=== PATIENT | female | born 1975 | race Caucasian/White ===

== ENCOUNTER 2017-04-09 06:49 | Emergency (ER) | payer OTHER ==
[2017-04-09 07:37] LABS: BASOPHIL 0.1 % (0-2); EOSINOPHIL 0.9 % (0-5); HCT 34.7 % (37.0-47.0); HGB 11.6 g/dl (12.5-16.0); LYMPHOCYTE 15.4 % (15-48); MCH 33.2 pg (25.0-31.0); MCHC 33.4 g/dL (32.0-36.0); MCV 99.4 fL (78.0-100.0); MONOCYTE 4.4 % (0-12); MPV 9.4 fL (6.0-9.5); NEUTROPHIL 79.2 % (41-80); PLT 274 K/uL (150-400); RBC 3.49 M/uL (4.20-5.40); RDW 12.2 % (11.5-14.0); WBC 10.4 K/uL (4.0-10.5)
[2017-04-09 07:55] LABS: ALBUMIN 4.1 g/dL (3.5-5.0); BILIRUBIN - TOTAL 0.3 mg/dL (0.1-1.0); CREATININE 1.7 mg/dL (0.5-1.0); GLOBULIN (CALCULATION) 2.8 g/dL (2.2-4.2); POTASSIUM 3.5 mmol/L (3.5-5.1); TOTAL PROTEIN 6.9 g/dL (6.4-8.3)
[2017-04-09 08:08] LABS: LACTIC ACID 1.3 mmol/L (0.5-2.2)
[2017-04-09 08:13] LABS: BILIRUBIN NEGATIVE (NEGATIVE); BLOOD 1+ Ery/uL (NEGATIVE); CLARITY CLEAR (CLEAR); COLOR YELLOW (YELLOW); GLUCOSE (U) NORMAL (NORMAL); KETONE (U) NEGATIVE (NEGATIVE); LEUKOCYTES TRACE Leu/uL (NEGATIVE); NITRITE NEGATIVE (NEGATIVE); PROTEIN NEGATIVE (NEGATIVE); SPECIFIC GRAVITY 1.015 (1.001-1.030); UROBILINOGEN 0.2 mg/dL (0.2-1.0); pH 5.5 (5.0-9.0)
[2017-04-09 08:24] LABS: BACTERIA 1+
== END 2017-04-09 09:21 | disposition home or self-care (01) ==
LOC: FER 06:49
PROVIDERS: Emergency Medicine
DX: K59.00 Constipation, unspecified (principal); Q61.3 Polycystic kidney, unspecified; I12.9 Hypertensive chronic kidney disease with stage 1 through stage 4 chronic kidney disease, or unspecified chronic kidney disease; N18.4 Chronic kidney disease, stage 4 (severe); Z98.51 Tubal ligation status; F17.200 Nicotine dependence, unspecified, uncomplicated; Z88.1 Allergy status to other antibiotic agents; Z88.6 Allergy status to analgesic agent; Z79.899 Other long term (current) drug therapy
CPT/HCPCS: 36415; 80053; 81001; 83605; 83690; 85025; 87040; 87088; J2270; J2405

== ENCOUNTER 2021-08-04 12:53 | Emergency (ER) | payer MEDICARE, OTHER ==
[~2021-08-04 12:53] MED LIST: AMITRIPTYLINE H10 MG PO; AMLODIPINE BESY10 MG PO; BENTYL10 MG PO; CIPRO500 MG PO; HYDROCODON-ACE1 EAC2 PO; LOPRESSOR25 MG PO; OMEPRAZOLE40 MG PO; PROMETHAZINE12.5 M1 PO; SODIUM BICARBO650 MG PO
[2021-08-04 14:05] LABS: BASOPHIL 0.2 % (0-2); EOSINOPHIL 0.3 % (0-5); HCT 35.1 % (37.0-47.0); HGB 11.9 g/dl (12.5-16.0); MCH 31.1 pg (25.0-31.0); MCHC 33.9 g/dL (32.0-36.0); MCV 91.6 fL (78.0-100.0); MONOCYTE 4.4 % (0-12); MPV 10.6 fL (6.0-9.5); NEUTROPHIL 88.8 % (41-80); NRBC 0; PLT 241 K/uL (150-400); RBC 3.83 M/uL (4.20-5.40); RDW 11.7 % (11.5-14.0); WBC 10.8 K/uL (4.0-10.5)
[2021-08-04 15:06] LABS: ALBUMIN 4.4 g/dL (3.4-5.0); ALKALINE PHOSHATASE 62 U/L (46-116); ALT 26 U/L (14-59); AST 17 U/L (15-37); BILIRUBIN - TOTAL 0.5 mg/dL (0.2-1.0); BUN 13 mg/dL (7-18); BUN/CREAT RATIO (CALC) 15.9 RATIO; C-REACTIVE PROTEIN < 0.20 mg/dL (<=0.90); CHLORIDE 103 mmol/L (98-107); CO2 (BICARBONATE) 22 mmol/L (21-32); CREATININE 0.82 mg/dL (0.51-0.95); GLOBULIN (CALCULATION) 3.1 g/dL; GLUCOSE 173 mg/dL (74-106); MAGNESIUM 1.6 mg/dL (1.8-2.4); POTASSIUM 3.6 mmol/L (3.5-5.1); TOTAL PROTEIN 7.5 g/dL (6.4-8.2)
[2021-08-04 15:29] LABS: BILIRUBIN NEGATIVE (NEGATIVE); BLOOD NEGATIVE Ery/uL (NEGATIVE); CLARITY CLEAR (CLEAR); COLOR YELLOW (YELLOW); GLUCOSE (U) NORMAL (NORMAL); LEUKOCYTES NEGATIVE Leu/uL (NEGATIVE); NITRITE NEGATIVE (NEGATIVE); PROTEIN 1+ mg/dL (NEGATIVE); UROBILINOGEN 0.2 mg/dL (0.2-1.0)
[2021-08-04 15:43] LABS: LACTIC ACID 1.2 mmol/L (0.4-1.9)
[2021-08-04 15:45] LABS: URINARY RBC RARE; URINARY WBC RARE
== END 2021-08-04 21:01 | disposition other institution (70) ==
LOC: FER 12:53
PROVIDERS: Emergency Medicine
DX: R10.9 Unspecified abdominal pain (principal); R11.10 Vomiting, unspecified; R19.7 Diarrhea, unspecified; Z20.822 Contact with and (suspected) exposure to COVID-19; Z88.6 Allergy status to analgesic agent; Z88.8 Allergy status to other drugs, medicaments and biological substances
CPT/HCPCS: 36415; 71045; 80053; 81001; 83605; 83735; 84145; 84484; 85025; 86140; 87040; 93005; J1170; J2405; J2550; J7030; U0002

== ENCOUNTER 2022-02-01 04:22 | Emergency (ER) | payer MEDICARE, OTHER ==
[2022-02-01 04:40] LABS: BASOPHIL 0.2 % (0-2); HCT 32.8 % (37.0-47.0); HGB 10.8 g/dl (12.5-16.0); LYMPHOCYTE 9.1 % (15-48); MCH 29.3 pg (25.0-31.0); MCHC 32.9 g/dL (32.0-36.0); MCV 89.1 fL (78.0-100.0); MONOCYTE 5.1 % (0-12); MPV 9.5 fL (6.0-9.5); NEUTROPHIL 84.2 % (41-80); NRBC 0; PLT 225 K/uL (150-400); RBC 3.68 M/uL (4.20-5.40); RDW 12.9 % (11.5-14.0); WBC 15.4 K/uL (4.0-10.5)
[2022-02-01 04:57] LABS: ALBUMIN 3.9 g/dL (3.4-5.0); BILIRUBIN - TOTAL 0.3 mg/dL (0.2-1.0); BUN/CREAT RATIO (CALC) 12.4 RATIO; CREATININE 1.13 mg/dL (0.51-0.95); GLOBULIN (CALCULATION) 3.2 g/dL; POTASSIUM 3.6 mmol/L (3.5-5.1); TOTAL PROTEIN 7.1 g/dL (6.4-8.2)
[2022-02-01 05:20] LABS: BILIRUBIN NEGATIVE (NEGATIVE); BLOOD TRACE-INTACT Ery/uL (NEGATIVE); CLARITY CLEAR (CLEAR); COLOR YELLOW (YELLOW); GLUCOSE (U) NORMAL (NORMAL); LEUKOCYTES NEGATIVE Leu/uL (NEGATIVE); NITRITE NEGATIVE (NEGATIVE); PROTEIN 3+ mg/dL (NEGATIVE); UROBILINOGEN 0.2 mg/dL (0.2-1.0); pH 7.5 (5.0-9.0)
[2022-02-01 05:23] LABS: INFLUENZA A NAA NEGATIVE (NEGATIVE)
[2022-02-01 05:25] LABS: CORONAVIRUS 2019 SARS-COV-2 POSITIVE (NEGATIVE)
== END 2022-02-01 09:50 | disposition other institution (70) ==
LOC: FER 04:22
PROVIDERS: Emergency Medicine
DX: U07.1 COVID-19 (principal); R10.12 Left upper quadrant pain; R10.32 Left lower quadrant pain; Z94.0 Kidney transplant status; Z88.6 Allergy status to analgesic agent; Z88.8 Allergy status to other drugs, medicaments and biological substances
CPT/HCPCS: 36415; 80053; 81001; 84703; 85025; 87088; J1170; J2405; J2550; J7030; U0002

== ENCOUNTER 2022-02-04 14:36 | Emergency (ER) | payer MEDICARE, OTHER ==
[2022-02-04 15:51] LABS: BASOPHIL 0.3 % (0-2); EOSINOPHIL 0.3 % (0-5); HCT 29.1 % (37.0-47.0); HGB 10.1 g/dl (12.5-16.0); LYMPHOCYTE 7.9 % (15-48); MCH 29.7 pg (25.0-31.0); MCHC 34.7 g/dL (32.0-36.0); MONOCYTE 3.4 % (0-12); MPV 9.8 fL (6.0-9.5); NEUTROPHIL 87.8 % (41-80); NRBC 0; PLT 192 K/uL (150-400); RDW 12.5 % (11.5-14.0); WBC 7.6 K/uL (4.0-10.5)
[2022-02-04 15:57] LABS: MCV 85.6 fL (78.0-100.0)
[2022-02-04 16:01] LABS: CREATININE 0.96 mg/dL (0.51-0.95); POTASSIUM 3.4 mmol/L (3.5-5.1)
== END 2022-02-04 19:57 | disposition home or self-care (01) ==
LOC: FER 14:36
PROVIDERS: Nurse Practitioner Family
DX: U07.1 COVID-19 (principal); R11.15 Cyclical vomiting syndrome unrelated to migraine; I10 Essential (primary) hypertension; Z94.0 Kidney transplant status; Z88.6 Allergy status to analgesic agent; Z88.8 Allergy status to other drugs, medicaments and biological substances; Z28.310 Unvaccinated for COVID-19
CPT/HCPCS: 36415; 80048; 85025; 93005; J1170; J2270; J2405; J2550; J7030

== ENCOUNTER 2022-03-29 13:13 | Emergency (ER) | payer MEDICARE, OTHER ==
[2022-03-29 14:19] LABS: ALBUMIN 3.5 g/dL (3.4-5.0); BILIRUBIN - TOTAL 0.5 mg/dL (0.2-1.0); BUN/CREAT RATIO (CALC) 11.2 RATIO; CREATININE 1.07 mg/dL (0.51-0.95); GLOBULIN (CALCULATION) 3.1 g/dL; POTASSIUM 3.2 mmol/L (3.5-5.1); TOTAL PROTEIN 6.6 g/dL (6.4-8.2)
[2022-03-29 14:23] LABS: BASOPHIL 0.2 % (0-2); EOSINOPHIL 0.2 % (0-5); HCT 26.7 % (37.0-47.0); LACTIC ACID 1.4 mmol/L (0.4-1.9); LYMPHOCYTE 8.7 % (15-48); MCH 29.7 pg (25.0-31.0); MCHC 33.7 g/dL (32.0-36.0); MCV 88.1 fL (78.0-100.0); MONOCYTE 2.9 % (0-12); MPV 9.9 fL (6.0-9.5); NEUTROPHIL 87.7 % (41-80); NRBC 0; PLT 229 K/uL (150-400); RBC 3.03 M/uL (4.20-5.40); RDW 13.3 % (11.5-14.0)
[2022-03-29 15:16] LABS: BILIRUBIN NEGATIVE (NEGATIVE); BLOOD 2+ Ery/uL (NEGATIVE); CLARITY HAZY (CLEAR); COLOR YELLOW (YELLOW); GLUCOSE (U) TRACE mg/dL (NORMAL); LEUKOCYTES NEGATIVE Leu/uL (NEGATIVE); NITRITE NEGATIVE (NEGATIVE); PROTEIN 3+ mg/dL (NEGATIVE); SPECIFIC GRAVITY 1.015 (1.001-1.030); UROBILINOGEN 0.2 mg/dL (0.2-1.0)
[2022-03-29 15:26] LABS: BACTERIA 1+
== END 2022-03-29 19:30 | disposition home or self-care (01) ==
LOC: FER 13:13
PROVIDERS: Emergency Medicine
DX: R10.13 Epigastric pain (principal); R11.2 Nausea with vomiting, unspecified; Z20.822 Contact with and (suspected) exposure to COVID-19; Z28.310 Unvaccinated for COVID-19; Z88.6 Allergy status to analgesic agent
CPT/HCPCS: 36415; 80053; 81001; 83605; 83690; 85025; 87088; J1170; J2405; J2550; J3010; J7030; U0002

== ENCOUNTER 2022-04-20 09:18 | Emergency (ER) | payer MEDICARE, OTHER ==
[2022-04-20 10:01] LABS: BASOPHIL 0.5 % (0-2); EOSINOPHIL 3.2 % (0-5); HCT 27.9 % (37.0-47.0); LYMPHOCYTE 16.1 % (15-48); MCH 29.2 pg (25.0-31.0); MCHC 32.3 g/dL (32.0-36.0); MCV 90.6 fL (78.0-100.0); MONOCYTE 7.7 % (0-12); MPV 9.5 fL (6.0-9.5); NRBC 0; PLT 240 K/uL (150-400); RBC 3.08 M/uL (4.20-5.40); WBC 4.4 K/uL (4.0-10.5)
[2022-04-20 10:20] LABS: ALBUMIN 3.2 g/dL (3.4-5.0); BILIRUBIN - TOTAL 0.4 mg/dL (0.2-1.0); CREATININE 1.1 mg/dL (0.51-0.95); GLOBULIN (CALCULATION) 3.2 g/dL; POTASSIUM 4.1 mmol/L (3.5-5.1); TOTAL PROTEIN 6.4 g/dL (6.4-8.2)
== END 2022-04-20 14:05 | disposition home or self-care (01) ==
LOC: FER 09:18
PROVIDERS: Emergency Medicine
DX: R07.89 Other chest pain (principal); I10 Essential (primary) hypertension; Z88.8 Allergy status to other drugs, medicaments and biological substances; Z91.013 Allergy to seafood
CPT/HCPCS: 36415; 70450; 71045; 80053; 84484; 85025; 93005; J1170; J2405